=== PATIENT | female | born 1935 | race Caucasian/White ===

== ENCOUNTER → 2018-02-10 | Outpatient (CLI) | payer MEDICARE ==
[~2018-02-10] MED LIST: ALEN70 PO; AMIT10 PO; ATEN25 PO; BACL10 PO; CALCIUM + D3 E1 EACH PO; DICLOFENAC SODIUM 1% TOP; DULO60 PO; GABA600 PO; HYDACE10B PO; HYDACE5 PO; Inderal40 MG PO; LEVSOD50 PO; OXYACE5T PO; STOOL SOFTENER1 EAC2 PO; TRAM50 PO; VITAMIN B122500 MC1 PO; ZOLP5 PO; [UNRECOGNIZED DRUG - OTHER] PO
[2018-02-10 18:34] LABS: BASOPHILS ABSOLUTE AUTO 0.06 K/mm3 (0.00-0.23); BASOPHILS PERCENT AUTO 1 % (0-2); EOSINOPHILS PERCENT AUTO 4 % (0-6); Hematocrit 43.6 % (33.0-51.0); Hemoglobin 14.4 g/dL (11.5-16.0); IMMATURE GRAN ABSOLUTE AUTO 0.01 K/mm3 (0.00-0.10); IMMATURE GRAN PERCENT AUTO 0 % (0-1); LYMPHOCYTES PERCENT AUTO 32 % (21-46); MONOCYTES ABSOLUTE AUTO 0.69 K/mm3 (0.16-1.47); MONOCYTES PERCENT AUTO 12 % (4-13); Mean Corpuscular HGB 30.6 pg (26.0-34.0); Mean Corpuscular Volume 93 fL (80-100); Mean Platelet Volume 10.6 fL (9.1-12.4); NEUTROPHILS ABSOLUTE AUTO 2.88 K/mm3 (1.96-9.15); NEUTROPHILS PERCENT AUTO 51 % (41-73); Platelet Count 170 K/mm3 (150-400); RDW Coefficient Variation 13.6 % (11.7-14.2); Red Blood Cell Count 4.71 M/mm3 (3.80-5.20); White Blood Cell Count 5.64 K/mm3 (4.00-11.30)
[2018-02-10 18:44] LABS: Alanine Aminotransfer (ALT/SGP 22 U/L (12-78); Albumin, Blood 3.5 g/dL (3.4-5.0); Albumin/Globulin Ratio 0.9 (0.8-1.8); Alk Phos 70 U/L (40-126); Anion Gap 6 mmol/L (6-16); Aspartate Aminotrans (AST/SGOT 21 U/L (12-37); Bilirubin, Total 0.4 mg/dL (0.1-1.0); Blood Urea Nitrogen 16 mg/dL (8-24); Bun/Creatinine Ratio 19.5 (12.0-20.0); CO2, Blood 34 mmol/L (21-32); Calcium, Blood 9.4 mg/dL (8.5-10.1); Chloride, Blood 102 mmol/L (98-108); Creatinine, Blood 0.82 mg/dL (0.40-1.00); Glomerular Filtration Rate >60 (60-); Glucose, Blood 95 mg/dL (70-99); Potassium, Blood 3.7 mmol/L (3.5-5.5); Sodium, Blood 142 mmol/L (136-145); Total Protein, Blood 7.5 g/dL (6.4-8.2)
== END ==
LOC: LAB EV 18:29 → LAB SHORT 18:29
PROVIDERS: Physician Assistant
DX: R10.31 Right lower quadrant pain (principal)
CPT/HCPCS: 80053; 85025

== ENCOUNTER 2019-02-01 11:59 | Emergency (ER) | payer MEDICARE, OTHER ==
[~2019-02-01] VITALS: Ht 160 cm; Wt 61.7 kg
[2019-02-01 12:20] LABS: BASOPHILS ABSOLUTE AUTO 0.05 K/mm3 (0.00-0.23); BASOPHILS PERCENT AUTO 1 % (0-2); EOSINOPHILS ABSOLUTE AUTO 0.17 K/mm3 (0.00-0.68); EOSINOPHILS PERCENT AUTO 3 % (0-6); Hematocrit 45.6 % (33.0-51.0); Hemoglobin 14.4 g/dL (11.5-16.0); IMMATURE GRAN ABSOLUTE AUTO 0.01 K/mm3 (0.00-0.10); IMMATURE GRAN PERCENT AUTO 0 % (0-1); LYMPHOCYTES ABSOLUTE AUTO 2.04 K/mm3 (0.84-5.20); LYMPHOCYTES PERCENT AUTO 33 % (21-46); MONOCYTES PERCENT AUTO 15 % (4-13); Mean Corpuscular HGB 30.3 pg (26.0-34.0); Mean Corpuscular HGB Conc 31.6 g/dL (31.5-36.5); Mean Corpuscular Volume 96 fL (80-100); Mean Platelet Volume 10.4 fL (9.1-12.4); NEUTROPHILS ABSOLUTE AUTO 2.98 K/mm3 (1.96-9.15); NEUTROPHILS PERCENT AUTO 48 % (41-73); Platelet Count 175 K/mm3 (150-400); RDW Coefficient Variation 14.2 % (11.7-14.2); RDW Standard Deviation 50.2 fL (35.1-46.3); Red Blood Cell Count 4.76 M/mm3 (3.80-5.20); White Blood Cell Count 6.15 K/mm3 (4.00-11.30)
[2019-02-01 12:34] LABS: International Normalized Ratio 0.98; Prothrombin Time Results 10.4 Sec (9.7-11.5)
[2019-02-01 12:44] LABS: Alanine Aminotransfer (ALT/SGP 16 U/L (12-78); Albumin, Blood 3.4 g/dL (3.4-5.0); Albumin/Globulin Ratio 0.9 (0.8-1.8); Alk Phos 74 U/L (50-136); Anion Gap 3 mmol/L (6-16); Aspartate Aminotrans (AST/SGOT 17 U/L (12-37); Bilirubin, Total 0.8 mg/dL (0.1-1.0); Blood Urea Nitrogen 10 mg/dL (8-24); Bun/Creatinine Ratio 12.4 (12.0-20.0); CO2, Blood 32 mmol/L (21-32); Calcium, Blood 8.7 mg/dL (8.5-10.1); Chloride, Blood 101 mmol/L (98-108); Creatinine, Blood 0.81 mg/dL (0.40-1.00); Globulin, Blood 3.9 g/dL (2.2-4.0); Glomerular Filtration Rate >60 (60-); Glucose, Blood 104 mg/dL (70-99); Potassium, Blood 3.5 mmol/L (3.5-5.5); Sodium, Blood 136 mmol/L (136-145); Total Protein, Blood 7.3 g/dL (6.4-8.2); Troponin I <0.015 ng/mL (0.000-0.040)
[2019-02-01 13:17] LABS: Source, Urine Clean Catch
[2019-02-01 13:22] LABS: Bilirubin, Urine Neg (Neg); Blood, Urine 1+ (Neg); Glucose Qualitative, Urine Neg (Neg); Ketones, Urine Neg (Neg); Leukocyte Esterase, Urine 1+ (Neg); Nitrite, Urine Neg (Neg); Protein, Urine Neg (Neg); Urobilinogen, Urine NORM (Normal)
[2019-02-01 14:22] LABS: Appearance, Urine Clear (Clear); Color, Urine Yellow (P-Yellow)
[2019-02-01 14:30] LABS: Bacteria Few /hpf; Red Blood Cells, Urine Rare /hpf (0-2); Squamous Epithelial Cells Few /hpf (Few)
[2019-02-01] MEDS ORDERED: ACET500 PO (14:40)
== END 2019-02-01 15:14 | disposition home or self-care (01) ==
LOC: ER 11:59
PROVIDERS: Emergency Medicine
DX: S01.81XA Laceration without foreign body of other part of head, initial encounter (principal); R53.1 Weakness; W01.198A Fall on same level from slipping, tripping and stumbling with subsequent striking against other object, initial encounter; Z91.048 Other nonmedicinal substance allergy status; Z88.8 Allergy status to other drugs, medicaments and biological substances; Z79.899 Other long term (current) drug therapy; Z79.891 Long term (current) use of opiate analgesic
CPT/HCPCS: 70450; 71046; 80053; 81001; 84484; 85025; 85610; 87086; 90471; 90714; 93005; 93010; 99285-25

== ENCOUNTER → 2019-07-24 | Outpatient (CLI) | payer MEDICARE, OTHER ==
[~2019-07-24] MED LIST changes: +ACET500 PO
== END | disposition home or self-care (01) ==
LOC: PLD 13:36 → LAB SHORT 13:36
DX: D48.5 Neoplasm of uncertain behavior of skin (principal)
CPT/HCPCS: 88305

== ENCOUNTER → 2019-12-07 | Outpatient (CLI) | payer MEDICARE, OTHER | LOC: LAB EV 16:00 → LAB SHORT 16:00 | DX: N64.3 Galactorrhea not associated with childbirth (principal) | CPT/HCPCS: 87070; 87077; 87147; 87186; 87205 ==

== ENCOUNTER → 2021-03-10 | Outpatient (CLI) | payer OTHER ==
[~2021-03-10] MED LIST changes: +Primidone50 MG
== END | disposition home or self-care (01) ==
LOC: LAB 08:28 → LAB SHORT 08:28
DX: D48.5 Neoplasm of uncertain behavior of skin (principal)
CPT/HCPCS: 88305

== ENCOUNTER 2021-04-07 11:48 | Emergency (ER) | payer OTHER | END 2021-04-07 15:42 | disposition home or self-care (01) | LOC: ER 11:48 | DX: M54.5 Low back pain (principal); R10.9 Unspecified abdominal pain ==

== ENCOUNTER 2022-01-10 16:38 | Emergency (ER) | payer OTHER ==
[~2022-01-10] VITALS: Ht 160 cm; Wt 44.0 kg
== END 2022-01-10 21:10 | disposition home or self-care (01) ==
LOC: ER 16:38
DX: S70.02XA Contusion of left hip, initial encounter (principal); J90 Pleural effusion, not elsewhere classified; Z91.048 Other nonmedicinal substance allergy status; Z79.899 Other long term (current) drug therapy; W19.XXXA Unspecified fall, initial encounter
CPT/HCPCS: 71045; 73700; 99283-25

== ENCOUNTER 2022-02-21 09:44 | Inpatient (IN) | payer OTHER ==
[~2022-02-21] VITALS: Ht 160 cm; Wt 47.8 kg
[~2022-02-21 09:44] MED LIST changes: -CALCIUM + D3 E1 EACH PO; +CALCIUM 600-VI1 EAC6 PO; +DOCUZEN 8.6-501 EACH PO; -STOOL SOFTENER1 EAC2 PO
[2022-02-21 10:10] LABS: BASOPHILS ABSOLUTE AUTO 0.04 K/mm3 (0.00-0.23); BASOPHILS PERCENT AUTO 0 % (0-2); EOSINOPHILS PERCENT AUTO 1 % (0-6); Hematocrit 43.9 % (33.0-51.0); Hemoglobin 14.5 g/dL (11.5-16.0); IMMATURE GRAN ABSOLUTE AUTO 0.04 K/mm3 (0.00-0.10); IMMATURE GRAN PERCENT AUTO 0 % (0-1); LYMPHOCYTES ABSOLUTE AUTO 1.04 K/mm3 (0.84-5.20); LYMPHOCYTES PERCENT AUTO 11 % (21-46); MONOCYTES ABSOLUTE AUTO 0.67 K/mm3 (0.16-1.47); MONOCYTES PERCENT AUTO 7 % (4-13); Mean Corpuscular Volume 94 fL (80-100); Mean Platelet Volume 10.4 fL (9.1-12.4); NEUTROPHILS ABSOLUTE AUTO 7.82 K/mm3 (1.96-9.15); NEUTROPHILS PERCENT AUTO 81 % (41-73); Platelet Count 175 K/mm3 (150-400); RDW Coefficient Variation 13.9 % (11.7-14.2); RDW Standard Deviation 47.9 fL (35.1-46.3); Red Blood Cell Count 4.67 M/mm3 (3.80-5.20); White Blood Cell Count 9.71 K/mm3 (4.00-11.30)
[2022-02-21 10:34] LABS: Albumin, Blood 3.5 g/dL (3.4-5.0); Albumin/Globulin Ratio 0.7 (0.8-1.8); Bilirubin, Total 0.9 mg/dL (0.1-1.0); Bun/Creatinine Ratio 30.7 (12.0-20.0); Calcium, Blood 8.8 mg/dL (8.5-10.1); Creatinine, Blood 0.46 mg/dL (0.40-1.00); Potassium, Blood 4.8 mmol/L (3.5-5.5); Total Protein, Blood 8.5 g/dL (6.4-8.2)
[2022-02-21 11:15] LABS: Source, Urine Straight Cath
[2022-02-21 11:18] LABS: Appearance, Urine Clear (Clear); Bilirubin, Urine Neg (Neg); Blood, Urine 2+ (Neg); Color, Urine Yellow (P-Yellow); Glucose Qualitative, Urine Neg (Neg); Ketones, Urine Neg (Neg); Leukocyte Esterase, Urine 1+ (Neg); Nitrite, Urine Neg (Neg); Protein, Urine Neg (Neg); Specific Gravity, Urine 1.015 (1.003-1.022); Urobilinogen, Urine NORM (Normal)
[2022-02-21 11:26] LABS: Squamous Epithelial Cells Rare /hpf (Few)
[2022-02-21 11:34] LABS: Bacteria Mod /hpf
[2022-02-21] MEDS ORDERED: QUET25 (11:35)
[2022-02-21] MEDS ORDERED: FOSAMAX70 MG PO (11:45)
[2022-02-21] MEDS ORDERED: Amitriptyline H10 MG PO (11:46)
[2022-02-21] MEDS ORDERED: NEURONTIN600 MG PO (11:47)
[2022-02-21] MEDS ORDERED: EUTHYROX50 MCG PO (11:48)
[2022-02-21] MEDS ORDERED: Primidone50 MG PO (11:49)
[2022-02-21] MEDS ORDERED: INDERAL XL120 MG PO (11:51)
[2022-02-21] MEDS ORDERED: QUETIAPINE FUMA25 MG PO (11:52)
--- NOTE | 2022-02-21 16:57 | NUR ---
ADMISSION/SHIFT SUMMARY: PT IS NEW ADMIT, ARRIVING FROM ER APPROX 1350. PT ARRIVES A&Ox4, L FACIAL/EYELID DROOP AND L SIDE WEAKNESS, GARBLED SPEECH. DISCHARGE TO [facility], PT STATES NORMAL FOR HER. PT MAINTAINING O2 SATS >92% ON RA, DENIES SOB. AFIB 90s-110 ON MONITOR, DENIES CP, PRN MEDS IN PLACE FOR HTN. PT ASSISTS MINIMALLY WITH TURNS, BEDREST AT THIS TIME, CURRENTLY USING BEDPAN FOR VOIDING. WILL CONTINUE TO MONITOR AND TREAT ACCORDINGLY UNTIL CHANGE OF SHIFT.
--- NOTE | 2022-02-21 20:35 | NUR ---
PT DENIES HX OF AFIB THOUGH PT CONT'S TO BE AFIB W/TRENDING UPWARD HR, NOW SUSTAINING 120'S AND TOUCHING 150'S. SHE DENIES CHEST PAIN/PRESSURE AT THIS TIME BUT APPEARS MILDLY ANXIOUS AND REQUESTS AT BEDSIDE. ASSISTE PT TO CALL FOR NO ANSWER. REASSURANCE PROVIDED AND REPOSITIONED FOR COMFORT. MADE AWARE OF TRENDING UPWARD HR W/O PRN RATE CONTROL MEDS AND NEW ORDER RECIEVED FOR PRN METOPROLOL. WILL ADMIN AND REEVALUATE FOR EFFECT.
--- NOTE | 2022-02-21 22:00 | NUR ---
METOPROLOL 5MG IV PRN RECIEVED AT 2102 FOR GOOD AFFECT. SHE REMAINS AFIB ON TELEMETRY BUT RATE IS DOWN TO 85-98 BPM. NO COMPLAINTS AT THIS TIME.
--- NOTE | 2022-02-22 05:39 | NUR ---
SUMMARY: PT A/OX3-4, IS PLEASANT AND COOPERATIVE W/CARE AND CALLED APPROPRIATELY TO SPECIFY NEEDS AFTER CALL LIGHT WAS MODIFIED FOR EASE OF USE. L.SIDE REMAINS WEAK POST CVA BUT STRENGTH SEEMS TO BE IMPROVING SLIGHTLY. SHE HAS A L.FACIAL + EYELID DROOP, GARBLED SPEECH AND HAS SPEECH TX EVAL TO ASSESS SWALLOW. PT TOLERATED PILLS CRUSHED IN APPLESAUCED BUT SEEMED TO HAVE SLIGHT DIFFICULTY W/THIN LIQUIDS, NO S/S ASPIRATION OBSERVED. PT IS ON BEDREST W/TURN SCHEDULE MAINTAINED AND ATTENDS CHANGED PRN FOR INCONTINENCE. SHE REMAINS IN AFIB ON TELEMETRY AND BEGAN SHIFT SUSTAINING HR>120'S, TOUCHING 15O'S BUT METROPROLOL IV PRN WAS RX'D AND RECIEVED FOR GOOD EFFECT. HR NOW IS 80'S-LOW 100'S BPM. PT DENIES S/S CARDIAC DISTRESS. NO ACUTE CHANGES, VSS AND AFEBRILE. WCTM AND REPORT TO DAY RN.
[2022-02-22 05:41] LABS: CHOL/HDL RATIO 2.8; Cholesterol 163 mg/dL (50-200); HDL Cholesterol 58 mg/dL (>39); LDL/HDL RATIO 1.5; Low Density Lipoprotein Chol 86 mg/dL (0-110); Triglycerides 96 mg/dL (30-160); Very Low Density Lipoprot Chol 19 mg/dL (6-32)
[2022-02-22 08:14] LABS: Magnesium, Blood 1.8 mg/dL (1.6-2.4)
[2022-02-22 08:15] LABS: Anion Gap 10 mmol/L (6-16); Blood Urea Nitrogen 20 mg/dL (8-24); Bun/Creatinine Ratio 23.8 (12.0-20.0); CO2, Blood 31 mmol/L (21-32); Calcium, Blood 8.7 mg/dL (8.5-10.1); Chloride, Blood 95 mmol/L (98-108); Creatinine, Blood 0.84 mg/dL (0.40-1.00); Glomerular Filtration Rate 67 (60-); Glucose, Blood 110 mg/dL (70-99); Potassium, Blood 3.4 mmol/L (3.5-5.5); Sodium, Blood 136 mmol/L (136-145)
--- NOTE | 2022-02-22 11:31 | NUR ---
Echocardiogram completed.
--- NOTE | 2022-02-22 16:22 | NUR ---
PATIENT AOX4, CAN MAKE NEEDS KNOWN. PT IS 1-2 PERSON ASSIST TO BSC; PT HAS WEAKNESS AFTER CVA. PT PUT ON NPO AFTER ST EVAL AND NOW STRICT NPO AFTER SWALLOW STUDY. NS FLUID CURRENTLY INFUSING. CALL LIGHT IN REACH, PT USES IT APPROPRIATELY.
--- NOTE | 2022-02-22 23:07 | NUR ---
MADE AWARE OF HR SUSTAINGING 130'S-140'S, TOUCHING 160'S NOW. PT RECIEVED PRN HYDRALAZINE AT HS FOR BP 181/85 W/HR 142 BPM. BP IMPROVED BUT HR REMAINS ELEVATED IN AFIB. LOPRESSOR 5MG IV NOW RX'D. HE WAS ALSO MADE AWARE OF PT C/O OF PELVIC PAIN W/FENTANYL 25-50MCG IV Q4H PRN RX'D. WILL ADMIN MEDS AND REEAVALUATE FOR EFFECT.
--- NOTE | 2022-02-23 00:30 | NUR ---
HR IMPROVED POST METOPROLOL X1. SHE REMAINS AFIB BUT HR DOWN TO 90'S-LOW 100'S BPM AT THIS TIME. PAIN TO PELVIS AND R.ARM IS ALSO GETTING BETTER.
--- NOTE | 2022-02-23 05:08 | NUR ---
SUMMARY: PT A/OX3-4, IS PLEASANT AND COOPERATIVE W/CARE AND SPECIFIES NEEDS. NEURO OBS STABLE BUT L.FACIAL DROOP SEEMS MORE PROMINENT FROM PREVIOUS NOCTE. PT MADE STRICT NPO SINCE SWALLOW EVAL ON DAY SHIFT W/PO MEDS HELD PER ORDERS. SPEECH IS CLEARER BUT PT HAS REQUIRED MORE MOUTH CARE AND ORAL SUCTIONING FOR SECRETIONS. RCP STRENGTH IS INTACT BUT L.SIDE WEAKNESS PERSISTS AND BILAT LEGS WEAK W/L.LEG LACKING COORDINATION. 2P HEAVY ASSIST REQUIRED FOR [place] T/[place] TO [facility] [place] SHE VOIDED AND HAD X2 SMALL FORMED BM'S THIS SHIFT. HER INITIAL L.AC IV WAS LEAKING SO IT WAS REPLACED BUT THE NEW R.FA IV CAUSED SIGNIFICANT DISCOMFORT DESPITE BEING PATENT AND W/O S/S INFILTRATION/PHLEBITIS AND WAS DC'D. NEW 22G IV PLACED TO KYLER W/IVF RESTARTED. NEW ORDER RECIEVED FOR FENTANYL PRN FOR C/O PELVIC PAIN, GENERALISED ACHES AND R.ARM DISCOMFORT. DONUT PILLOW PLACED FOR SUPPORT OF BUTTOCKS AND R.ARM WRAPPED IN WARM BLANKETS. HYDRALAZINE PRN REQUIRED FOR SBP>180 AT HS, BP IMPROVED WNL. PT REMAINS AFIB ON TELEMETRY AND REQUIRED X1 PRN IV METOPROPLOL FOR HR SUSTAINING 130'S, TOUCHING 160'S AT TIMES. PT NOW AFIB AT 90'S-100'S BPM AND ASYMPTOMATIC OF CARDIAC DISTRESS. NO ACUTE CHANGES, VSS/AFEBRILE BUT DAY MD WILL NEED TO EVALUATE PO MEDS GIVEN NPO STATUS. WCDOC AND REPORT TO DAY RN.
[2022-02-23 05:32] LABS: BASOPHILS ABSOLUTE AUTO 0.04 K/mm3 (0.00-0.23); BASOPHILS PERCENT AUTO 1 % (0-2); EOSINOPHILS ABSOLUTE AUTO 0.02 K/mm3 (0.00-0.68); EOSINOPHILS PERCENT AUTO 0 % (0-6); Hematocrit 40.8 % (33.0-51.0); Hemoglobin 13.7 g/dL (11.5-16.0); IMMATURE GRAN ABSOLUTE AUTO 0.03 K/mm3 (0.00-0.10); IMMATURE GRAN PERCENT AUTO 0 % (0-1); LYMPHOCYTES ABSOLUTE AUTO 1.74 K/mm3 (0.84-5.20); LYMPHOCYTES PERCENT AUTO 23 % (21-46); MONOCYTES ABSOLUTE AUTO 0.98 K/mm3 (0.16-1.47); MONOCYTES PERCENT AUTO 13 % (4-13); Mean Corpuscular HGB 31.6 pg (26.0-34.0); Mean Corpuscular HGB Conc 33.6 g/dL (31.5-36.5); Mean Corpuscular Volume 94 fL (80-100); Mean Platelet Volume 10.3 fL (9.1-12.4); NEUTROPHILS ABSOLUTE AUTO 4.83 K/mm3 (1.96-9.15); NEUTROPHILS PERCENT AUTO 63 % (41-73); Platelet Count 166 K/mm3 (150-400); RDW Coefficient Variation 14.4 % (11.7-14.2); RDW Standard Deviation 49.8 fL (35.1-46.3); Red Blood Cell Count 4.34 M/mm3 (3.80-5.20); White Blood Cell Count 7.64 K/mm3 (4.00-11.30)
--- NOTE | 2022-02-23 06:00 | NUR ---
HR AGAIN SUSTAINING 130'S-14O'S IN AFIB. MADE AWARE W/CARDIZEM 10MG IV X1 RX'D. WILL ADMINISTER AND ASSESS FOR EFFECT.
--- NOTE | 2022-02-23 06:25 | NUR ---
FENTANYL 5OMCG IV RECIEVED FOR C/O R.ARM PAIN, AWAITING EFFECT. CARDIZEM IV X1 BEING HELD AT PRESENT FOR HR NOW SUSTAINING LOW 100'S AND DOESN'T APPEAR NEEDED AT PRESENT. WILL VERIFY W/.
--- NOTE | 2022-02-23 06:32 | NUR ---
MADE AWARE THAT PT'S HR NOW DOWN TO LOW 100'S, TOUCHING 90'S BPM BUT REMAINS IN AFIB. HE AGREES THAT CARDIZEM X1 IV PUSH IS NO LONGER NEEDED AT PRESENT AND MED WAS HELD AT THIS TIME.
--- NOTE | 2022-02-23 15:00 | NUR ---
PT AO3-4, CAN MAKE NEEDS KNOWN. 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 PT WAS PLACED ON COMFORT CARE THIS AFTERNOON. PT PLACE ON ADVANCE TOLERATED DIET, STILL HAVING DIFFICULTY SWALLOWING. PT IS STATING PAIN AT HER RIGHT SHOULDER AND BOTTOM; PRN PAIN MED GIVEN. CALL LIGHT IN REACH, BED IN LOWEST POSITION.
--- NOTE | 2022-02-23 15:10 | NUR ---
Brief supportive visit. Comfort care ordered by MD. Pt resting in bed with her eyes closed upon arrival. Pt wakes to gentle verbal stimuli. Pt reports mild discomfort on her buttocks but denies need for repositioning or medication. Pt does request cement tester assistant for prayer. Pt reports no other concerns at this time. Spoke with Primary RN Shanique and discussed case. Spouse was in visiting this AM but has since left. Attempted to contact spouse and left message on voicemail with request for a return phone call. Palliative Care will remain available.
--- NOTE | 2022-02-23 16:02 | NUR ---
Spiritual care visit conducted. Pt immediately tells me that her greatest prayer is to "go home to be in God's presence forever." She then talks about the struggles she is experiencing and that it all pales in comparison to the love of God and all that he has planned for us. Pt tells me that the greatest loves in her life is her and her Lord. I listen empathically, normalize her wishes, and provide recitation of scriptures, pastoral licensed professional counselor, emotional support and prayer. Pt responds well and shows signs of being comforted. Pt voices appreciation for the prayer and kindness extended. I will continue to remain available to pt and family.
--- NOTE | 2022-02-24 00:13 | NUR ---
IN FOR ROUNDING AND PT FOUND TO NO LONGER BE BREATHING. NO RISE IN CHEST NOTED, UNABLE TO PALPATE PULSE OR HEAR LUNG SOUNDS. TIME OF PRONOUNCED AT 2340. PT'S NOTIFIED AND WILL COME IN WITH SON TO SEE PT TONIGHT.
--- NOTE | 2022-02-24 01:20 | NUR ---
PT'S SAMIR IN TO SEE PT, PRAYED WITH HER. GATHERED PT'S BELONGINGS TO TAKE HOME. REPORTED THAT [facility] [address] WAS THEIR PREFERRED HOME. WENT HOME AT 0110. NOTIFIED FLEXIBLE NANNY STACEY REGARDING HOME. TUSHAR TO [facility]IY [facility].
== END 2022-02-24 01:58 | DRG 65 ==
LOC: ER 09:44 → MEDS 11:27
PROVIDERS: Student in an Organized Health Care Education/Training Program; ADMIT Family Medicine
DX: I63.81 Other cerebral infarction due to occlusion or stenosis of small artery (principal); R64 Cachexia; G81.94 Hemiplegia, unspecified affecting left nondominant side; Z68.1 Body mass index [BMI] 19.9 or less, adult; Z66 Do not resuscitate; Z51.5 Encounter for palliative care; R29.810 Facial weakness; R47.02 Dysphasia; G25.0 Essential tremor; I48.91 Unspecified atrial fibrillation; I16.0 Hypertensive urgency; M81.0 Age-related osteoporosis without current pathological fracture; E03.9 Hypothyroidism, unspecified; G62.9 Polyneuropathy, unspecified; M19.90 Unspecified osteoarthritis, unspecified site; G89.29 Other chronic pain; M54.9 Dorsalgia, unspecified; Z85.528 Personal history of other malignant neoplasm of kidney; Z90.710 Acquired absence of both cervix and uterus; Z90.89 Acquired absence of other organs; Z98.890 Other specified postprocedural states; Z79.899 Other long term (current) drug therapy; Z91.09 Other allergy status, other than to drugs and biological substances; Z91.041 Radiographic dye allergy status; Z90.49 Acquired absence of other specified parts of digestive tract
CPT/HCPCS: 36415; 70450; 71045; 74230; 80053; 80061; 80069; 81001; 83735; 84443; 85025; 87086; 92526; 92610; 92611; 93005; 93010; 93306; 93880; 97112; 97161; 97166; 97530; 99285-25; A9270; J0360; J0696; J1170; J3010; J3480; J7030